=== PATIENT | male | born 1935 | race Caucasian/White ===

== ENCOUNTER 2019-12-16 09:51 | Observation (INO) | payer MEDICARE, MEDICAID ==
[~2019-12-16] VITALS: Ht 180.3 cm; Wt 85.0 kg
--- NOTE | 2019-12-16 10:10 | NUR ---
BIB EMS FOR LEFT ANKLE PAIN FROM TRIPPING OVER HIS BAG. CMS INTACT. ABRASIONS TO LEFT KNEE
--- NOTE | 2019-12-16 12:00 | NUR ---
WAITING FOR ORTHO BOOT AT 230 PM. PT VSS, NO NEEDS A THIS TIME. GIVEN WATER AND SNACKS
--- NOTE | 2019-12-16 13:01 | NUR ---
PT WAITING FOR ORTHO SPECIFIC BOOT FOR LEFT ANKLE MEAL TRAY ORDERED VSS
--- NOTE | 2019-12-16 13:27 | NUR ---
GIVEN MEAL TRAY, NO OTHER NEEDS AT THIS TIME.
[2019-12-16] MEDS ORDERED: METF10007 PO (14:57)
[2019-12-16] MEDS ORDERED: APIX5TAB PO (14:58)
[2019-12-16] MEDS ORDERED: ATOR20TA37 PO (14:58)
[2019-12-16] MEDS ORDERED: TAMS-11 PO (14:58)
--- NOTE | 2019-12-16 14:58 | NUR ---
PT UNABLE TO AMBULATE SAFELY FOR DC. AWARE. POC TO ADMIT. [facility] AT BEDSIDE.
[2019-12-16] MEDS ORDERED: HYDROcodone/APAP 5/325 TABLET PO ONE (15:00)
[2019-12-16 15:06] LABS: BASOPHILS # (AUTO) 0.04 x10^3/uL (0-0.1); BASOPHILS % (AUTO) 1 % (0-1); EOSINOPHILS # (AUTO) 0.08 x10^3/uL (0-0.4); EOSINOPHILS % (AUTO) 1 % (1-7); LYMPHOCYTES # (AUTO) 1.96 x10^3/uL (1-3.4); LYMPHOCYTES % (AUTO) 23 % (22-44); MD NO; MEAN CORPUSCULAR HEMOGLOBIN 30.9 pg (27.5-34.5); MEAN CORPUSCULAR HGB CONC 33.2 g/dL (33.2-36.2); MEAN CORPUSCULAR VOLUME 93.1 fL (81-97); MEAN PLATELET VOLUME 8.7 fL (7.4-10.4); MONOCYTES # (AUTO) 0.49 x10^3/uL (0.2-0.8); MONOCYTES % (AUTO) 6 % (2-9); NEUTROPHILS # (AUTO) 5.99 x10^3/uL (1.8-6.8); NEUTROPHILS % (AUTO) 70 % (42-75); PLATELET COUNT 301 x10^3/uL (130-400); RED BLOOD COUNT 4.34 x10^6/uL (4.38-5.82); RED CELL DISTRIBUTION WIDTH 15.3 % (9.4-14.8)
[2019-12-16 15:15] LABS: ANION GAP 6 mmol/L (5-15); CALCIUM 8.9 mg/dL (8.5-10.1); CHLORIDE 106 mmol/L (98-107); CREATININE 1.81 mg/dL (0.7-1.3)
[2019-12-16] MEDS ORDERED: ONDANSETRON ODT 4 MG PO PRN (15:30)
[2019-12-16] MEDS ORDERED: ACETAMINOPHEN 325 MG TABLET PO PRN (15:30)
[2019-12-16] MEDS ORDERED: BACLOFEN 10 MG TABLET PO PRN (15:30)
[2019-12-16] MEDS ORDERED: hydrALAzine 20 MG/ML, 1ML IVPush PRN (15:30)
[2019-12-16] MEDS ORDERED: morphine SULFATE 10 MG/ML, 1ML IVPush PRN (15:30)
[2019-12-16] MEDS ORDERED: ONDANSETRON 2MG/ML, 2ML IVPush PRN (15:30)
--- NOTE | 2019-12-16 15:30 | NUR ---
REPORT TO ELISEO
[2019-12-16 15:58] VITALS: BP 135/70
[2019-12-16] MEDS ORDERED: LISI1TAB20 PO (16:33)
[2019-12-16 16:38] VITALS: BP 135/70
[2019-12-16] MEDS: HYDROcodone/APAP 5/325 TABLET PO PRN ×2 (17:39→22:06)
[2019-12-16 20:20] VITALS: BP 104/61
[2019-12-16] MEDS: ATORVASTATIN 20 MG TABLET PO SCH (20:53)
[2019-12-16] MEDS: APIXABAN 5 MG TABLET PO SCH (20:53)
[2019-12-17 01:51] VITALS: BP 108/70
[2019-12-17] MEDS: HYDROcodone/APAP 5/325 TABLET PO PRN ×3 (01:55→22:15)
[2019-12-17 06:38] VITALS: BP 123/68
[2019-12-17] MEDS: APIXABAN 5 MG TABLET PO SCH (08:40)
[2019-12-17] MEDS ORDERED: TAMSULOSIN 0.4 MG CAP.ER.24H PO SCH (09:00)
[2019-12-17 11:38] LABS: CREATININE 1.84 mg/dL (0.7-1.3)
[2019-12-17 12:40] VITALS: BP 126/63
[2019-12-17 19:46] VITALS: BP 158/77
[2019-12-17] MEDS: ATORVASTATIN 20 MG TABLET PO SCH (19:48)
[2019-12-17] MEDS: APIXABAN 2.5 MG TABLET PO SCH (19:48)
[2019-12-17] MEDS: TAMSULOSIN 0.4 MG CAP.ER.24H PO SCH (19:49)
[2019-12-18] MEDS: HYDROcodone/APAP 5/325 TABLET PO PRN ×2 (02:52→17:00)
[2019-12-18 03:06] VITALS: BP 102/62
[2019-12-18 05:31] LABS: BASOPHILS # (AUTO) 0.04 x10^3/uL (0-0.1); BASOPHILS % (AUTO) 1 % (0-1); EOSINOPHILS % (AUTO) 1 % (1-7); LYMPHOCYTES # (AUTO) 1.77 x10^3/uL (1-3.4); LYMPHOCYTES % (AUTO) 21 % (22-44); MD NO; MEAN CORPUSCULAR HEMOGLOBIN 30.6 pg (27.5-34.5); MEAN CORPUSCULAR HGB CONC 33.1 g/dL (33.2-36.2); MEAN CORPUSCULAR VOLUME 92.7 fL (81-97); MEAN PLATELET VOLUME 8.7 fL (7.4-10.4); MONOCYTES # (AUTO) 0.57 x10^3/uL (0.2-0.8); MONOCYTES % (AUTO) 7 % (2-9); NEUTROPHILS # (AUTO) 5.86 x10^3/uL (1.8-6.8); NEUTROPHILS % (AUTO) 70 % (42-75); PLATELET COUNT 267 x10^3/uL (130-400); RED BLOOD COUNT 3.84 x10^6/uL (4.38-5.82); RED CELL DISTRIBUTION WIDTH 15.3 % (9.4-14.8)
[2019-12-18 05:37] LABS: ANION GAP 9 mmol/L (5-15); CALCIUM 8.5 mg/dL (8.5-10.1); CHLORIDE 104 mmol/L (98-107)
[2019-12-18 05:42] LABS: ALANINE AMINOTRANSFERASE 19 U/L (12-78); ALKALINE PHOSPHATASE 64 U/L (45-117); BILIRUBIN,TOTAL 0.6 mg/dL (0.2-1.0); CREATININE 1.89 mg/dL (0.7-1.3); TOTAL PROTEIN 6.1 g/dL (6.4-8.2)
[2019-12-18 07:16] VITALS: BP 91/53
[2019-12-18] MEDS: APIXABAN 2.5 MG TABLET PO SCH ×2 (08:23→20:56)
[2019-12-18] MEDS: TAMSULOSIN 0.4 MG CAP.ER.24H PO SCH ×2 (08:23→20:57)
[2019-12-18 13:40] VITALS: BP 103/59
[2019-12-18 20:31] VITALS: BP 133/62
[2019-12-18] MEDS: ATORVASTATIN 20 MG TABLET PO SCH (20:57)
[2019-12-19 02:15] VITALS: BP 146/69
[2019-12-19 05:07] LABS: ANION GAP 7 mmol/L (5-15); CALCIUM 8.5 mg/dL (8.5-10.1); CHLORIDE 104 mmol/L (98-107); CREATININE 1.87 mg/dL (0.7-1.3)
[2019-12-19 07:35] VITALS: BP 153/75
[2019-12-19] MEDS: APIXABAN 2.5 MG TABLET PO SCH (08:01)
[2019-12-19] MEDS: HYDROcodone/APAP 5/325 TABLET PO PRN (08:01)
[2019-12-19] MEDS: TAMSULOSIN 0.4 MG CAP.ER.24H PO SCH (08:01)
[2019-12-19 14:05] VITALS: BP 133/66
== END 2019-12-19 14:32 | disposition home or self-care (01) ==
LOC: ED 10:07 → EDIP 15:03 → INTOOBSV 15:03 → 4NE 15:50
PROVIDERS: ADMIT Hospitalist; ATTEND Internal Medicine
DX: S82.65XA Nondisplaced fracture of lateral malleolus of left fibula, initial encounter for closed fracture (principal); D68.69 Other thrombophilia; I48.20 Chronic atrial fibrillation, unspecified; E78.5 Hyperlipidemia, unspecified; E11.22 Type 2 diabetes mellitus with diabetic chronic kidney disease; I12.9 Hypertensive chronic kidney disease with stage 1 through stage 4 chronic kidney disease, or unspecified chronic kidney disease; N40.0 Benign prostatic hyperplasia without lower urinary tract symptoms; N18.3 Chronic kidney disease, stage 3 (moderate); H40.9 Unspecified glaucoma; N27.1 Small kidney, bilateral; Z79.899 Other long term (current) drug therapy; W01.0XXA Fall on same level from slipping, tripping and stumbling without subsequent striking against object, initial encounter; Y93.01 Activity, walking, marching and hiking; Y92.89 Other specified places as the place of occurrence of the external cause
CPT/HCPCS: 29515; 36415; 73590; 73610; 76770; 80048; 80053; 82565; 85025; 96374; 97116; 97162; 97165; 97530; 99285; G0378; J2405

== ENCOUNTER 2019-12-21 08:56 | Emergency (ER) | payer MEDICARE, MEDICAID ==
[~2019-12-21] VITALS: Ht 180.3 cm; Wt 83.1 kg
[~2019-12-21 08:56] MED LIST: APIX5TAB PO; ATOR20TA37 PO; LISI1TAB20 PO; METF10007 PO; TAMS-11 PO
[2019-12-21 08:57] VITALS: BP 115/79
[2019-12-21] MEDS ORDERED: HYDROcodone/APAP 5/325 TABLET ONE (09:25)
[2019-12-21] MEDS ORDERED: HYDROcodone/APAP 5/325 TABLET PO ONE (09:30)
--- NOTE | 2019-12-21 10:07 | NUR ---
PT MEDICATED PER MAR, NO ADVERSE EFFECTS NOTED. THIS RN REPLACED PTS FWW WHEEL, PT STATES THIS IS SUFFICIENT, AWAITING DC PAPERS
== END 2019-12-21 10:39 | disposition home or self-care (01) ==
LOC: ED 09:18
DX: S82.62XA Displaced fracture of lateral malleolus of left fibula, initial encounter for closed fracture (principal); M25.572 Pain in left ankle and joints of left foot; M79.672 Pain in left foot; I25.10 Atherosclerotic heart disease of native coronary artery without angina pectoris; I10 Essential (primary) hypertension; I48.91 Unspecified atrial fibrillation; Z72.9 Problem related to lifestyle, unspecified
CPT/HCPCS: 99283

== ENCOUNTER 2019-12-26 10:22 | Emergency (ER) | payer MEDICARE, MEDICAID ==
[~2019-12-26] VITALS: Ht 180.3 cm; Wt 81.7 kg
--- NOTE | 2019-12-26 13:05 | NUR ---
pt in [place]. Will be roomed on return to ED by tech.
--- NOTE | 2019-12-26 13:40 | NUR ---
assumed care of pt. pt presents c/o increased pain to L ankle radiating to L leg. pt reports that he was seen here last week for a fall and dx with ankle fx. pt has been wearing a walking boot and using a walker. pt reports that he is newly homeless and that he has been doing a lot more walkin than normal. no selling noted to ankle. CMS intact. L ankle elevated and ice pack applied. + Sharmila's sign. warm blankets given for comfort. no family at bedside
--- NOTE | 2019-12-26 13:58 | NUR ---
xray has been to bedside
--- NOTE | 2019-12-26 14:39 | NUR ---
report to Brandon WHITE for lunch
[2019-12-26 15:00] VITALS: BP 162/61
== END 2019-12-26 15:04 | disposition home or self-care (01) ==
LOC: ED 12:01
DX: S82.62XA Displaced fracture of lateral malleolus of left fibula, initial encounter for closed fracture (principal); M79.662 Pain in left lower leg; I48.91 Unspecified atrial fibrillation; I25.10 Atherosclerotic heart disease of native coronary artery without angina pectoris; I10 Essential (primary) hypertension; X50.0XXA Overexertion from strenuous movement or load, initial encounter; Y93.89 Activity, other specified; Y92.89 Other specified places as the place of occurrence of the external cause; Y99.8 Other external cause status
CPT/HCPCS: 99284

== ENCOUNTER 2019-12-31 06:57 | Emergency (ER) | payer MEDICARE, MEDICAID ==
[~2019-12-31] VITALS: Ht 177.8 cm; Wt 70.0 kg
[2019-12-31] MEDS ORDERED: HYDROcodone/APAP 5/325 TABLET PO ONE (08:00)
[2019-12-31] MEDS ORDERED: HYDROcodone/APAP 5/325 TABLET ONE (08:45)
--- NOTE | 2019-12-31 08:50 | NUR ---
AFTER MEDICATED FOR PAIN, PT WALKED TO BATHROOM WITH USE OF CANE
[2019-12-31 11:26] VITALS: BP 143/74
== END 2019-12-31 11:31 | disposition home or self-care (01) ==
LOC: ED 07:44
DX: S29.012A Strain of muscle and tendon of back wall of thorax, initial encounter (principal); S20.211A Contusion of right front wall of thorax, initial encounter; I11.9 Hypertensive heart disease without heart failure; I25.10 Atherosclerotic heart disease of native coronary artery without angina pectoris; I48.91 Unspecified atrial fibrillation; W18.30XA Fall on same level, unspecified, initial encounter; Y93.89 Activity, other specified; Y92.410 Unspecified street and highway as the place of occurrence of the external cause; Y99.8 Other external cause status
CPT/HCPCS: 72110; 99284

== ENCOUNTER 2020-05-10 15:50 | Inpatient (IN) | payer MEDICARE, MEDICAID ==
[~2020-05-10] VITALS: Ht 180.3 cm; Wt 83.5 kg
--- NOTE | 2020-05-10 15:50 | NUR ---
PT BIB [facility] FOR WEAKNESS OVER LAST 2 DAYS WITH HR IN THE 160'S ON [facility] ARRIVAL. 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 PT REPORTS NOT EATING OR DRINKING MUCH OVER LAST 2 DAYS. PT IS HOMELESS. PT DENIES CP.
[2020-05-10] MEDS ORDERED: LISI1TAB20 PO (16:42)
[2020-05-10] MEDS ORDERED: APIX5TAB PO (16:42)
[2020-05-10] MEDS ORDERED: METF500T17 PO (16:42)
[2020-05-10] MEDS ORDERED: ASPI-496 PO (16:42)
[2020-05-10 17:28] LABS: MICROSCOPIC AUTO
[2020-05-10 17:29] LABS: BASOPHILS # (AUTO) 0.03 x10^3/uL (0-0.1); BASOPHILS % (AUTO) 0 % (0-1); EOSINOPHILS % (AUTO) 5 % (1-7); LYMPHOCYTES # (AUTO) 1.81 x10^3/uL (1-3.4); LYMPHOCYTES % (AUTO) 21 % (22-44); MD NO; MEAN CORPUSCULAR HEMOGLOBIN 30.4 pg (27.5-34.5); MEAN CORPUSCULAR HGB CONC 33.1 g/dL (33.2-36.2); MEAN CORPUSCULAR VOLUME 91.9 fL (81-97); MEAN PLATELET VOLUME 9.5 fL (7.4-10.4); MONOCYTES % (AUTO) 7 % (2-9); NEUTROPHILS # (AUTO) 5.69 x10^3/uL (1.8-6.8); NEUTROPHILS % (AUTO) 67 % (42-75); PLATELET COUNT 273 x10^3/uL (130-400); RED BLOOD COUNT 4.31 x10^6/uL (4.38-5.82); RED CELL DISTRIBUTION WIDTH 14.7 % (9.4-14.8)
[2020-05-10 17:35] LABS: ALANINE AMINOTRANSFERASE 22 U/L (12-78); ALBUMIN 3.7 g/dL (3.4-5.0); ANION GAP 7 mmol/L (5-15); CHLORIDE 112 mmol/L (98-107); CREATININE 2.12 mg/dL (0.7-1.3)
[2020-05-10 17:39] LABS: ALKALINE PHOSPHATASE 91 U/L (45-117); BILIRUBIN,TOTAL 0.7 mg/dL (0.2-1.0); TOTAL PROTEIN 7.3 g/dL (6.4-8.2); TROPONIN I 0.058 ng/mL (0.000-0.045)
--- NOTE | 2020-05-10 17:54 | NUR ---
BREAK RN: PT RESTING ON FAITH. LAURA. VSS. ORTHOSTATICS COMPLETED.
--- NOTE | 2020-05-10 18:20 | NUR ---
CHART UP FOR MD RECHECK. PT AWARE.
--- NOTE | 2020-05-10 19:32 | NUR ---
STILL WAITING FOR ADMIT ORDER. PT IN NAD. VSS.
--- NOTE | 2020-05-10 20:20 | NUR ---
YECENIA Lewis NP AT BEDSIDE FOR ADMIT.
[2020-05-10] MEDS ORDERED: hydrALAzine 20 MG/ML, 1ML IVPush PRN (20:30)
[2020-05-10] MEDS ORDERED: BISACODYL 10 MG SUPP PR PRN (20:30)
[2020-05-10] MEDS ORDERED: POLYETHYLENE GLYCOL 17 GM PACKET PO PRN (20:30)
[2020-05-10] MEDS ORDERED: ONDANSETRON ODT 4 MG PO PRN (20:30)
[2020-05-10] MEDS ORDERED: ACETAMINOPHEN 325 MG TABLET PO PRN (20:30)
--- NOTE | 2020-05-10 20:51 | NUR ---
PT GIVEN WATER PER PT REQUEST. STILL WAITING ON ADMIT BED.
[2020-05-10] MEDS ORDERED: APIXABAN 5 MG TABLET ONE (20:59)
[2020-05-10] MEDS ORDERED: ATORVASTATIN 20 MG TABLET ONE (20:59)
[2020-05-10] MEDS: INSULIN LISPRO 100 UNITS/ML, PEN SQ-INSULIN SCH (21:00)
[2020-05-10] MEDS ORDERED: ATORVASTATIN 20 MG TABLET PO SCH (21:00)
[2020-05-10] MEDS: APIXABAN 5 MG TABLET PO SCH (21:01)
[2020-05-10] MEDS: SODIUM CHLORIDE 0.45% 1,000 ML IV SCH (21:43)
--- NOTE | 2020-05-10 22:01 | NUR ---
REPORT TO JUDSON WHITE.
[2020-05-10 23:05] LABS: TROPONIN I 0.043 ng/mL (0.000-0.045)
[2020-05-11 00:13] VITALS: BP 175/94
[2020-05-11 05:34] LABS: BASOPHILS # (AUTO) 0.03 x10^3/uL (0-0.1); BASOPHILS % (AUTO) 0 % (0-1); EOSINOPHILS # (AUTO) 0.52 x10^3/uL (0-0.4); EOSINOPHILS % (AUTO) 7 % (1-7); LYMPHOCYTES # (AUTO) 1.73 x10^3/uL (1-3.4); LYMPHOCYTES % (AUTO) 22 % (22-44); MD NO; MEAN CORPUSCULAR HEMOGLOBIN 30.5 pg (27.5-34.5); MEAN CORPUSCULAR VOLUME 92.4 fL (81-97); MEAN PLATELET VOLUME 9.7 fL (7.4-10.4); MONOCYTES # (AUTO) 0.58 x10^3/uL (0.2-0.8); MONOCYTES % (AUTO) 7 % (2-9); NEUTROPHILS # (AUTO) 5.11 x10^3/uL (1.8-6.8); NEUTROPHILS % (AUTO) 64 % (42-75); PLATELET COUNT 263 x10^3/uL (130-400); RED BLOOD COUNT 4.11 x10^6/uL (4.38-5.82); RED CELL DISTRIBUTION WIDTH 14.5 % (9.4-14.8)
[2020-05-11 05:43] LABS: ANION GAP 6 mmol/L (5-15); CALCIUM 8.6 mg/dL (8.5-10.1); CHLORIDE 114 mmol/L (98-107)
[2020-05-11 05:47] LABS: TROPONIN I 0.039 ng/mL (0.000-0.045)
[2020-05-11] MEDS: SODIUM CHLORIDE 0.45% 1,000 ML IV SCH ×2 (06:14→09:42)
[2020-05-11] MEDS: INSULIN LISPRO 100 UNITS/ML, PEN SQ-INSULIN SCH ×3 (07:00→16:00)
[2020-05-11] MEDS: APIXABAN 5 MG TABLET PO SCH (08:07)
[2020-05-11 08:35] VITALS: BP 163/90
[2020-05-11] MEDS ORDERED: SENNA/DOCUSATE TABLET PO SCH (09:00)
[2020-05-11] MEDS ORDERED: ASPIRIN 81 MG TABLET EC PO SCH (09:00)
[2020-05-11] MEDS ORDERED: TAMSULOSIN 0.4 MG CAP.ER.24H PO SCH (09:00)
[2020-05-11 09:57] VITALS: BP 160/82
[2020-05-11 09:59] VITALS: BP 146/77
[2020-05-11 10:01] VITALS: BP 153/85
[2020-05-11 12:05] VITALS: BP 150/79
== END 2020-05-11 16:28 | disposition home or self-care (01) | DRG 683 ==
LOC: ED 17:39 → EDIP 19:34 → 4EST 23:47
PROVIDERS: ADMIT Family Medicine; ATTEND Hospitalist
DX: N17.0 Acute kidney failure with tubular necrosis (principal); D68.69 Other thrombophilia; I48.20 Chronic atrial fibrillation, unspecified; I12.9 Hypertensive chronic kidney disease with stage 1 through stage 4 chronic kidney disease, or unspecified chronic kidney disease; E11.22 Type 2 diabetes mellitus with diabetic chronic kidney disease; E78.5 Hyperlipidemia, unspecified; H40.9 Unspecified glaucoma; I25.10 Atherosclerotic heart disease of native coronary artery without angina pectoris; I48.0 Paroxysmal atrial fibrillation; N18.3 Chronic kidney disease, stage 3 (moderate); N40.0 Benign prostatic hyperplasia without lower urinary tract symptoms; Z59.0 Homelessness; Z82.0 Family history of epilepsy and other diseases of the nervous system
CPT/HCPCS: 36415; 70450; 71045; 80048; 80053; 81001; 82962; 83036; 84484; 85025; 93005; 93880; G0378; J0360

== ENCOUNTER 2020-08-23 11:52 | Emergency (ER) | payer MEDICARE, MEDICAID ==
[~2020-08-23] VITALS: Ht 180.3 cm; Wt 85.5 kg
[~2020-08-23 11:52] MED LIST changes: +ASPI-496 PO; +METF500T17 PO
--- NOTE | 2020-08-23 12:04 | NUR ---
PT C/O LOW BACK PAIN AND NECK STIFFNESS X 10 YRS. ABLE TO MOVE BACK & NECK WITHOUT DIFFICULTY. ABLE TO STAND AT BS W/OUT ASSIST. PT CURRENTLY HOMELESS. DENIES CP, FEVER.
[2020-08-23] MEDS ORDERED: HYDROcodone/APAP 5/325 TABLET ONE (12:15)
[2020-08-23] MEDS ORDERED: METHOCARBAMOL 750 MG TABLET ONE (12:15)
--- NOTE | 2020-08-23 12:19 | NUR ---
NORCO & ROBAXIN GIVEN PER EMAR. LABS DRAWN.
--- NOTE | 2020-08-23 12:20 | NUR ---
TO RADIOLOGY PER FAITH
[2020-08-23] MEDS ORDERED: METHOCARBAMOL 750 MG TABLET PO ONE (12:30)
[2020-08-23] MEDS ORDERED: HYDROcodone/APAP 5/325 TABLET PO ONE (12:30)
[2020-08-23 12:35] LABS: BASOPHILS % (AUTO) 1 % (0-1); EOSINOPHILS % (AUTO) 1 % (1-7); LYMPHOCYTES % (AUTO) 24 % (22-44); MEAN CORPUSCULAR HEMOGLOBIN 30.7 pg (27.5-34.5); MEAN CORPUSCULAR HGB CONC 33.8 g/dL (33.2-36.2); MEAN PLATELET VOLUME 9.7 fL (7.4-10.4); MONOCYTES % (AUTO) 7 % (2-9); NEUTROPHILS % (AUTO) 68 % (42-75); PLATELET COUNT 244 x10^3/uL (130-400); RED BLOOD COUNT 4.37 x10^6/uL (4.38-5.82); RED CELL DISTRIBUTION WIDTH 14.1 % (9.4-14.8)
[2020-08-23 12:37] LABS: MD NO
[2020-08-23 12:49] LABS: ALBUMIN 3.7 g/dL (3.4-5.0); ANION GAP 7 mmol/L (5-15); CALCIUM 8.7 mg/dL (8.5-10.1); CHLORIDE 107 mmol/L (98-107)
[2020-08-23 12:50] LABS: CREATININE 2.13 mg/dL (0.7-1.3)
[2020-08-23] MEDS ORDERED: SODIUM CHLORIDE 0.9% 1,000ML IVBOLUS ONE (13:00)
[2020-08-23 13:14] LABS: MICROSCOPIC NOT IND
--- NOTE | 2020-08-23 13:25 | NUR ---
RESTING ON GURNEY. REPORTS SOME RELIEF FROM PAIN. NS BOLUS INFUSING. SIDE RAIL UP X2, CALL LIGHT W/IN REACH.
--- NOTE | 2020-08-23 14:06 | NUR ---
PT DOZING; EASILY AWAKENED. NS BOLUS INFUSING; IV SITE PATENT.
[2020-08-23 14:30] VITALS: BP 106/57
--- NOTE | 2020-08-23 14:57 | NUR ---
PT DOZING; EASILY AWAKENED. NS INFUSED.
== END 2020-08-23 15:47 | disposition home or self-care (01) ==
LOC: ED 12:46
DX: G89.29 Other chronic pain (principal); M54.5 Low back pain; M51.36 Other intervertebral disc degeneration, lumbar region; R42 Dizziness and giddiness; I10 Essential (primary) hypertension; E11.9 Type 2 diabetes mellitus without complications; R53.1 Weakness; I48.91 Unspecified atrial fibrillation; I25.10 Atherosclerotic heart disease of native coronary artery without angina pectoris; Z87.891 Personal history of nicotine dependence
CPT/HCPCS: 36415; 72110; 80048; 81003; 82040; 85025; 93005; 96360; 96361; 99285; J7030

== ENCOUNTER 2020-08-31 11:32 | Emergency (ER) | payer MEDICARE, MEDICAID ==
[~2020-08-31] VITALS: Ht 180.3 cm; Wt 82.7 kg
--- NOTE | 2020-08-31 11:55 | NUR ---
Pt presents to ER with c/o generalized pain "my neck, my whole back, my legs, they're real messed up. My clothes are dirty, I need to get cleaned up." Pt reports pain worse over the last two weeks due to having to walk around a lot as he is currently homeless. Pt denies any neuro defecits, able to ambulate with steady gait. Pt placed in gown, positioned for comfort in bed. Continuous oxygen and BP monitors applied, all safety measures observed.
--- NOTE | 2020-08-31 11:57 | NUR ---
Joe ZELAYA at bedside to evaluate pt. Pt reports he was seen here last week for same complaint, was given rx but was unable to fill it.
[2020-08-31] MEDS ORDERED: HYDROcodone/APAP 5/325 TABLET ONE (12:15)
[2020-08-31] MEDS ORDERED: LIDODERM 5% PATCH TD ONE ×2 (12:15→12:30)
--- NOTE | 2020-08-31 12:16 | NUR ---
PT AT XR.
[2020-08-31] MEDS ORDERED: HYDROcodone/APAP 5/325 TABLET PO ONE (12:30)
--- NOTE | 2020-08-31 12:45 | NUR ---
BACK FROM XR. MEDICATED FOR PAIN, LIDO PATCH R MIDDLE BACK. GIVEN URINAL. CALL AGUILERA.
--- NOTE | 2020-08-31 13:00 | NUR ---
ASSUMED CARE OF PATIENT. REPORT FROM LILIA WHITE. PATIENT RESTING, CALL LIGHT IN PLACE. BED RAILS UP AND IN PLACE. NO ADDITIONAL NEEDS VERBALIZED AT THIS TIME
[2020-08-31 13:26] LABS: CHLORIDE 109 mmol/L (98-107)
[2020-08-31 13:30] LABS: ALANINE AMINOTRANSFERASE 26 U/L (12-78); ALBUMIN 3.9 g/dL (3.4-5.0); ALKALINE PHOSPHATASE 75 U/L (45-117); ANION GAP 8 mmol/L (5-15); BILIRUBIN,TOTAL 0.5 mg/dL (0.2-1.0); CREATININE 2.17 mg/dL (0.7-1.3); TOTAL PROTEIN 7.2 g/dL (6.4-8.2)
--- NOTE | 2020-08-31 14:14 | NUR ---
URINE COLLECTED AND SENT
[2020-08-31 14:22] LABS: MICROSCOPIC AUTO
[2020-08-31 14:53] LABS: BASOPHILS % (AUTO) 0 % (0-1); EOSINOPHILS % (AUTO) 0 % (1-7); LYMPHOCYTES % (AUTO) 31 % (22-44); MEAN CORPUSCULAR HEMOGLOBIN 29.5 pg (27.5-34.5); MEAN CORPUSCULAR HGB CONC 32.5 g/dL (33.2-36.2); MEAN PLATELET VOLUME 9.8 fL (7.4-10.4); MONOCYTES % (AUTO) 7 % (2-9); NEUTROPHILS % (AUTO) 61 % (42-75); PLATELET COUNT 210 x10^3/uL (130-400); RED BLOOD COUNT 4.51 x10^6/uL (4.38-5.82); RED CELL DISTRIBUTION WIDTH 14.7 % (9.4-14.8)
[2020-08-31 14:59] LABS: MD NO
--- NOTE | 2020-08-31 15:23 | NUR ---
Patient/Caregiver given discharge instructions and they have confirmed that they understand the instructions. Patient ambulatory.
[2020-08-31 15:24] VITALS: BP 125/65
== END 2020-08-31 15:27 | disposition home or self-care (01) ==
LOC: ED 13:06
DX: M89.49 Other hypertrophic osteoarthropathy, multiple sites (principal); M54.5 Low back pain; R19.7 Diarrhea, unspecified; E11.9 Type 2 diabetes mellitus without complications; I10 Essential (primary) hypertension; I48.91 Unspecified atrial fibrillation
CPT/HCPCS: 36415; 72050; 72072; 80053; 81001; 85025; 87086; 99284

== ENCOUNTER 2020-11-01 03:02 | Emergency (ER) | payer MEDICARE, MEDICAID ==
[~2020-11-01] VITALS: Ht 177.8 cm; Wt 83.0 kg
[~2020-11-01 03:02] MED LIST changes: +APIX2.5T PO; +CEFD300C37 PO; +DILT300C2 PO; +DOXY100T PO; +MAGN400T50 PO
--- NOTE | 2020-11-01 03:02 | NUR ---
[facility] PT CONTACT. PT BIBA C/O SOB AND "HARD TIME CATCHING MY BREATH". PT DENIES CHEST PAIN. RECENTLY SEEN FOR SAME, "I WAS HERE FOR THE SAME THING A LITTLE WHILE AGO, IT WAS MY AFIB". PT SITTING UPRIGHT ON GURNEY, SPEAKING IN FULL SENTENCES. LAURA, GAEL. PT PLACED ON CONTINUOUS PULSE OX AND CARDIAC MONITORING. CALL LIGHT AND BELONGINGS WITHIN REACH. ERP AT BEDSIDE
[2020-11-01] MEDS ORDERED: ALBUTEROL/IPRATROPIUM 2.5MG/0.5MG, 3 ML ONE (03:08)
[2020-11-01 03:21] LABS: BASOPHILS % (AUTO) 1 % (0-1); EOSINOPHILS % (AUTO) 4 % (1-7); LYMPHOCYTES % (AUTO) 22 % (22-44); MEAN CORPUSCULAR HEMOGLOBIN 29.9 pg (27.5-34.5); MEAN CORPUSCULAR HGB CONC 32.5 g/dL (33.2-36.2); MEAN PLATELET VOLUME 9.5 fL (7.4-10.4); MONOCYTES % (AUTO) 6 % (2-9); NEUTROPHILS % (AUTO) 67 % (42-75); PLATELET COUNT 273 x10^3/uL (130-400); RED BLOOD COUNT 3.85 x10^6/uL (4.38-5.82); RED CELL DISTRIBUTION WIDTH 15.5 % (9.4-14.8)
[2020-11-01 03:25] LABS: MD NO
[2020-11-01] MEDS ORDERED: ALBUTEROL/IPRATROPIUM 2.5MG/0.5MG, 3 ML NPPB ONE (03:30)
[2020-11-01 03:32] LABS: ALANINE AMINOTRANSFERASE 69 U/L (12-78); ALBUMIN 3.4 g/dL (3.4-5.0); ANION GAP 8 mmol/L (5-15); CALCIUM 8.5 mg/dL (8.5-10.1); CHLORIDE 112 mmol/L (98-107); CREATININE 1.68 mg/dL (0.7-1.3)
[2020-11-01 03:36] LABS: ALKALINE PHOSPHATASE 80 U/L (45-117); BILIRUBIN,TOTAL 0.5 mg/dL (0.2-1.0); TOTAL PROTEIN 6.6 g/dL (6.4-8.2); TROPONIN I 0.056 ng/mL (0.000-0.045)
--- NOTE | 2020-11-01 04:00 | NUR ---
PT SITTING UPRIGHT ON GURNEY, SPEAKING IN FULL SENTENCES. GAEL SANCHEZ. PT ON CONTINUOUS PULSE OX AND CARDIAC MONITORING. CALL LIGHT AND BELONGINGS WITHIN REACH. "I FEEL BETTER AFTER THAT BREATHING TX THING". NO ADDITIONAL NEEDS AT THIS TIME.
[2020-11-01 04:33] VITALS: BP 107/74
--- NOTE | 2020-11-01 04:38 | NUR ---
Patient given discharge instructions and they have confirmed that they understand the instructions. Patient ambulatory with use of personal cane. Pt provided taxi voucher upon d/c.
== END 2020-11-01 04:40 | disposition home or self-care (01) ==
LOC: ED 03:43
DX: E11.22 Type 2 diabetes mellitus with diabetic chronic kidney disease (principal); I12.9 Hypertensive chronic kidney disease with stage 1 through stage 4 chronic kidney disease, or unspecified chronic kidney disease; N18.9 Chronic kidney disease, unspecified; J18.9 Pneumonia, unspecified organism; R77.8 Other specified abnormalities of plasma proteins; R07.89 Other chest pain; I48.91 Unspecified atrial fibrillation; I25.10 Atherosclerotic heart disease of native coronary artery without angina pectoris; R06.00 Dyspnea, unspecified; Z87.891 Personal history of nicotine dependence
CPT/HCPCS: 36415; 71045; 80053; 83880; 84484; 85025; 93005; 94640; 99285

== ENCOUNTER 2020-12-26 18:57 | Inpatient (IN) | payer MEDICARE, MEDICAID ==
[~2020-12-26] VITALS: Ht 180.3 cm; Wt 78.7 kg
--- NOTE | 2020-12-26 19:12 | NUR ---
[place]. Pt states SOB is worse with exertion. Pt denies CP. Pt denies N/V or other complaints. Pt in a-fib rhythm, BP stable. Pt on monitor. Warm blanket given.
[2020-12-26] MEDS ORDERED: DILTIAZEM 5 MG/ML, 5ML ONE (19:52)
[2020-12-26] MEDS ORDERED: DILTIAZEM 60 MG TABLET PO ONE (20:00)
[2020-12-26] MEDS ORDERED: SODIUM CHLORIDE FLUSH 10ML SYR IVF ONE (20:00)
[2020-12-26] MEDS ORDERED: DILTIAZEM 5 MG/ML, 5ML IV ONE (20:00)
[2020-12-26 20:14] LABS: BASOPHILS % (AUTO) 1 % (0-1); EOSINOPHILS % (AUTO) 1 % (1-7); LYMPHOCYTES % (AUTO) 16 % (22-44); MEAN CORPUSCULAR HEMOGLOBIN 29.7 pg (27.5-34.5); MEAN CORPUSCULAR HGB CONC 33.1 g/dL (33.2-36.2); MEAN PLATELET VOLUME 9.1 fL (7.4-10.4); MONOCYTES % (AUTO) 6 % (2-9); NEUTROPHILS % (AUTO) 77 % (42-75); PLATELET COUNT 278 x10^3/uL (130-400); RED BLOOD COUNT 4.18 x10^6/uL (4.38-5.82); RED CELL DISTRIBUTION WIDTH 15.3 % (9.4-14.8)
[2020-12-26 20:23] LABS: ALANINE AMINOTRANSFERASE 106 U/L (12-78); ALBUMIN 3.4 g/dL (3.4-5.0); ANION GAP 3 mmol/L (5-15); CALCIUM 8.5 mg/dL (8.5-10.1); CHLORIDE 114 mmol/L (98-107); CREATININE 1.77 mg/dL (0.7-1.3)
[2020-12-26 20:28] LABS: ALKALINE PHOSPHATASE 96 U/L (45-117); BILIRUBIN,TOTAL 0.6 mg/dL (0.2-1.0); TOTAL PROTEIN 6.4 g/dL (6.4-8.2)
[2020-12-26] MEDS ORDERED: FUROSEMIDE 40 MG/4 ML IV ONE (21:00)
[2020-12-26] MEDS ORDERED: LABETALOL 5MG/ML, 20ML IVPush PRN (22:00)
[2020-12-26] MEDS ORDERED: LIDODERM 5% PATCH TD PRN (22:00)
[2020-12-26] MEDS ORDERED: PHARMACY MAY ADJ FOR RENAL FX MC PRN (22:00)
[2020-12-26] MEDS ORDERED: ONDANSETRON 2MG/ML, 2ML IVPush PRN (22:00)
[2020-12-26] MEDS ORDERED: MELATONIN 5 MG TABLET PO PRN (22:00)
[2020-12-26 22:44] VITALS: BP 158/104
[2020-12-26] MEDS: APIXABAN 2.5 MG TABLET PO SCH (22:46)
[2020-12-26] MEDS: ATORVASTATIN 20 MG TABLET PO SCH (22:46)
[2020-12-26 22:54] VITALS: BP 158/104
[2020-12-27 01:27] VITALS: BP 158/75
[2020-12-27 01:45] LABS: TROPONIN I 0.081 ng/mL (0.000-0.045)
[2020-12-27] MEDS: ACETAMINOPHEN 325 MG TABLET PO PRN ×3 (01:52→21:00)
[2020-12-27 05:15] LABS: ANION GAP 5 mmol/L (5-15); CALCIUM 8.8 mg/dL (8.5-10.1); CHLORIDE 111 mmol/L (98-107)
[2020-12-27 05:22] LABS: BASOPHILS % (AUTO) 1 % (0-1); EOSINOPHILS % (AUTO) 1 % (1-7); LYMPHOCYTES % (AUTO) 18 % (22-44); MEAN CORPUSCULAR HEMOGLOBIN 29.4 pg (27.5-34.5); MEAN CORPUSCULAR HGB CONC 32.8 g/dL (33.2-36.2); MONOCYTES % (AUTO) 7 % (2-9); NEUTROPHILS % (AUTO) 74 % (42-75); PLATELET COUNT 272 x10^3/uL (130-400); RED BLOOD COUNT 4.22 x10^6/uL (4.38-5.82); RED CELL DISTRIBUTION WIDTH 15.1 % (9.4-14.8)
[2020-12-27 05:24] LABS: CREATININE 1.67 mg/dL (0.7-1.3); TROPONIN I 0.077 ng/mL (0.000-0.045)
[2020-12-27] MEDS: INSULIN LISPRO 100 UNITS/ML, PEN SQ-INSULIN SCH ×4 (08:15→21:00)
[2020-12-27 08:50] VITALS: BP 160/104
[2020-12-27] MEDS: MAGNESIUM OXIDE 400 MG TABLET PO SCH (08:59)
[2020-12-27] MEDS: FUROSEMIDE 40 MG/4 ML IV SCH ×2 (08:59→16:16)
[2020-12-27] MEDS: ASPIRIN 81 MG TABLET EC PO SCH (08:59)
[2020-12-27] MEDS: TAMSULOSIN 0.4 MG CAP.ER.24H PO SCH (09:00)
[2020-12-27] MEDS ORDERED: HYDROCHLOROTHIAZIDE 25 MG TABLET PO SCH (09:00)
[2020-12-27] MEDS: APIXABAN 2.5 MG TABLET PO SCH ×2 (09:00→21:00)
[2020-12-27] MEDS: LISINOPRIL 20 MG TABLET PO SCH (09:00)
[2020-12-27] MEDS: DILTIAZEM 300 MG CAP.ER.24H PO SCH (09:01)
[2020-12-27 15:20] VITALS: BP 200/108
[2020-12-27 15:43] VITALS: BP 161/87
[2020-12-27 19:41] VITALS: BP 133/103
[2020-12-27] MEDS: ATORVASTATIN 20 MG TABLET PO SCH (21:00)
[2020-12-28 01:01] VITALS: BP 160/72
[2020-12-28 04:42] LABS: BASOPHILS % (AUTO) 1 % (0-1); EOSINOPHILS % (AUTO) 2 % (1-7); LYMPHOCYTES % (AUTO) 20 % (22-44); MEAN CORPUSCULAR HEMOGLOBIN 29.7 pg (27.5-34.5); MEAN CORPUSCULAR HGB CONC 33.5 g/dL (33.2-36.2); MEAN PLATELET VOLUME 9.1 fL (7.4-10.4); MONOCYTES % (AUTO) 8 % (2-9); NEUTROPHILS % (AUTO) 70 % (42-75); PLATELET COUNT 282 x10^3/uL (130-400); RED BLOOD COUNT 4.68 x10^6/uL (4.38-5.82); RED CELL DISTRIBUTION WIDTH 15.2 % (9.4-14.8)
[2020-12-28] MEDS: ACETAMINOPHEN 325 MG TABLET PO PRN ×2 (04:48→20:25)
[2020-12-28] MEDS: DOCUSATE 100 MG CAPSULE PO PRN ×2 (04:48→09:12)
[2020-12-28 04:55] LABS: ANION GAP 7 mmol/L (5-15); CALCIUM 9.3 mg/dL (8.5-10.1); CHLORIDE 107 mmol/L (98-107)
[2020-12-28 05:08] LABS: CREATININE 2.05 mg/dL (0.7-1.3); FREE T4 (FREE THYROXINE) 1.26 ng/dL (0.76-1.46)
[2020-12-28] MEDS: INSULIN LISPRO 100 UNITS/ML, PEN SQ-INSULIN SCH ×4 (07:00→20:25)
[2020-12-28 08:48] VITALS: BP 157/80
[2020-12-28] MEDS: LISINOPRIL 20 MG TABLET PO SCH (09:00)
[2020-12-28] MEDS: APIXABAN 2.5 MG TABLET PO SCH ×2 (09:12→20:25)
[2020-12-28] MEDS: MAGNESIUM OXIDE 400 MG TABLET PO SCH (09:12)
[2020-12-28] MEDS: TAMSULOSIN 0.4 MG CAP.ER.24H PO SCH (09:12)
[2020-12-28] MEDS: ASPIRIN 81 MG TABLET EC PO SCH (09:12)
[2020-12-28] MEDS: FUROSEMIDE 40 MG/4 ML IV SCH (09:12)
[2020-12-28] MEDS: DILTIAZEM 300 MG CAP.ER.24H PO SCH (09:12)
[2020-12-28] MEDS ORDERED: POTASSIUM CHLORIDE 20 MEQ TAB.ER.PRT PO ONE (09:30)
[2020-12-28] MEDS ORDERED: DILTIAZEM 60 MG TABLET PO STA (09:50)
[2020-12-28] MEDS ORDERED: ALBUMIN HUMAN 25% 100 ML IV ONE (10:00)
[2020-12-28 14:02] LABS: MICROSCOPIC AUTO
[2020-12-28 15:30] VITALS: BP 118/67
[2020-12-28] MEDS ORDERED: FUROSEMIDE 40 MG/4 ML IV SCH (17:00)
[2020-12-28 19:02] VITALS: BP 123/80
[2020-12-28] MEDS: ATORVASTATIN 20 MG TABLET PO SCH (20:25)
[2020-12-29 00:16] VITALS: BP 138/78
[2020-12-29 05:52] LABS: BASOPHILS % (AUTO) 1 % (0-1); EOSINOPHILS % (AUTO) 3 % (1-7); LYMPHOCYTES % (AUTO) 25 % (22-44); MEAN CORPUSCULAR HEMOGLOBIN 29.7 pg (27.5-34.5); MEAN CORPUSCULAR HGB CONC 33.3 g/dL (33.2-36.2); MEAN PLATELET VOLUME 9.6 fL (7.4-10.4); MONOCYTES % (AUTO) 8 % (2-9); NEUTROPHILS % (AUTO) 63 % (42-75); PLATELET COUNT 242 x10^3/uL (130-400); RED BLOOD COUNT 3.96 x10^6/uL (4.38-5.82); RED CELL DISTRIBUTION WIDTH 14.9 % (9.4-14.8)
[2020-12-29 06:01] LABS: ANION GAP 6 mmol/L (5-15); CALCIUM 8.6 mg/dL (8.5-10.1); CHLORIDE 107 mmol/L (98-107)
[2020-12-29 06:04] LABS: CREATININE 1.71 mg/dL (0.7-1.3)
[2020-12-29] MEDS: INSULIN LISPRO 100 UNITS/ML, PEN SQ-INSULIN SCH ×4 (07:00→20:47)
[2020-12-29 08:12] VITALS: BP 153/79
[2020-12-29] MEDS: DILTIAZEM CD 180 MG CAP.ER.24H PO SCH (08:46)
[2020-12-29] MEDS: MAGNESIUM OXIDE 400 MG TABLET PO SCH (08:46)
[2020-12-29] MEDS: ASPIRIN 81 MG TABLET EC PO SCH (08:46)
[2020-12-29] MEDS: TAMSULOSIN 0.4 MG CAP.ER.24H PO SCH (08:46)
[2020-12-29] MEDS: LISINOPRIL 20 MG TABLET PO SCH (08:46)
[2020-12-29] MEDS: APIXABAN 2.5 MG TABLET PO SCH ×2 (08:46→20:39)
[2020-12-29] MEDS ORDERED: FUROSEMIDE 40 MG/4 ML IV SCH (09:00)
[2020-12-29 12:38] VITALS: BP 118/71
[2020-12-29] MEDS ORDERED: POTASSIUM CHLORIDE 20 MEQ TAB.ER.PRT PO ONE ×2 (17:30→21:00)
[2020-12-29 18:18] LABS: ANION GAP 8 mmol/L (5-15); CALCIUM 9.1 mg/dL (8.5-10.1); CHLORIDE 105 mmol/L (98-107); CREATININE 1.75 mg/dL (0.7-1.3)
[2020-12-29] MEDS: ATORVASTATIN 20 MG TABLET PO SCH (20:39)
[2020-12-29 21:35] VITALS: BP 129/82
[2020-12-30 01:01] VITALS: BP 153/99
[2020-12-30 05:33] LABS: BASOPHILS % (AUTO) 1 % (0-1); EOSINOPHILS % (AUTO) 3 % (1-7); LYMPHOCYTES % (AUTO) 22 % (22-44); MEAN CORPUSCULAR HEMOGLOBIN 29.7 pg (27.5-34.5); MEAN PLATELET VOLUME 9.2 fL (7.4-10.4); MONOCYTES % (AUTO) 9 % (2-9); NEUTROPHILS % (AUTO) 66 % (42-75); PLATELET COUNT 251 x10^3/uL (130-400); RED BLOOD COUNT 4.25 x10^6/uL (4.38-5.82); RED CELL DISTRIBUTION WIDTH 15.4 % (9.4-14.8)
[2020-12-30 05:39] LABS: ANION GAP 6 mmol/L (5-15); CALCIUM 8.7 mg/dL (8.5-10.1); CHLORIDE 109 mmol/L (98-107); CREATININE 1.59 mg/dL (0.7-1.3)
[2020-12-30] MEDS: INSULIN LISPRO 100 UNITS/ML, PEN SQ-INSULIN SCH ×4 (07:00→20:20)
[2020-12-30 07:39] VITALS: BP 166/75
[2020-12-30] MEDS: TAMSULOSIN 0.4 MG CAP.ER.24H PO SCH ×2 (09:46→20:21)
[2020-12-30] MEDS: SPIRONOLACTONE 25 MG TABLET PO SCH (09:46)
[2020-12-30] MEDS: FUROSEMIDE 40 MG TABLET PO SCH (09:47)
[2020-12-30] MEDS: DILTIAZEM CD 180 MG CAP.ER.24H PO SCH (09:47)
[2020-12-30] MEDS: MAGNESIUM OXIDE 400 MG TABLET PO SCH (09:47)
[2020-12-30] MEDS: ASPIRIN 81 MG TABLET EC PO SCH (09:47)
[2020-12-30] MEDS: APIXABAN 2.5 MG TABLET PO SCH ×2 (09:49→20:20)
[2020-12-30] MEDS: LISINOPRIL 20 MG TABLET PO SCH (09:49)
[2020-12-30 13:19] VITALS: BP 137/76
[2020-12-30 20:14] VITALS: BP 152/78
[2020-12-30] MEDS: ATORVASTATIN 20 MG TABLET PO SCH (20:20)
[2020-12-31] MEDS: ACETAMINOPHEN 325 MG TABLET PO PRN (02:20)
[2020-12-31 03:09] VITALS: BP 146/71
[2020-12-31 05:40] LABS: CHLORIDE 106 mmol/L (98-107)
[2020-12-31 05:47] LABS: ANION GAP 7 mmol/L (5-15); CREATININE 1.51 mg/dL (0.7-1.3)
[2020-12-31] MEDS: INSULIN LISPRO 100 UNITS/ML, PEN SQ-INSULIN SCH ×2 (07:00→11:42)
[2020-12-31 08:27] VITALS: BP 154/75
[2020-12-31] MEDS: ASPIRIN 81 MG TABLET EC PO SCH (08:28)
[2020-12-31] MEDS: TAMSULOSIN 0.4 MG CAP.ER.24H PO SCH (08:28)
[2020-12-31] MEDS: MAGNESIUM OXIDE 400 MG TABLET PO SCH (08:28)
[2020-12-31] MEDS: SPIRONOLACTONE 25 MG TABLET PO SCH (08:28)
[2020-12-31] MEDS: LISINOPRIL 20 MG TABLET PO SCH (08:28)
[2020-12-31] MEDS: DILTIAZEM CD 180 MG CAP.ER.24H PO SCH (08:29)
[2020-12-31] MEDS: FUROSEMIDE 40 MG TABLET PO SCH (08:29)
[2020-12-31] MEDS: APIXABAN 2.5 MG TABLET PO SCH (08:29)
[2020-12-31] MEDS ORDERED: REGADENOSON 0.4 MG/5 ML SYRINGE ONE (08:36)
[2020-12-31 12:40] VITALS: BP 130/86
[2020-12-31] MEDS ORDERED: LISI-170 PO (14:00)
[2020-12-31] MEDS ORDERED: ATOR20TA37 PO (14:00)
[2020-12-31] MEDS ORDERED: DILT180C53 PO ×3 (14:00→14:06)
[2020-12-31] MEDS ORDERED: TAMS-11 PO (14:00)
[2020-12-31] MEDS ORDERED: ASPI81TA45 PO (14:00)
[2020-12-31] MEDS ORDERED: DOCU-131 PO (14:00)
[2020-12-31] MEDS ORDERED: APIX2.5T PO (14:00)
[2020-12-31] MEDS ORDERED: MELA5TAB14 PO (14:00)
[2020-12-31] MEDS ORDERED: MAGN400T50 PO (14:00)
[2020-12-31] MEDS ORDERED: FURO40TA6 PO (14:00)
[2020-12-31] MEDS ORDERED: SPIR25TA PO (14:00)
[2021-01-01] MEDS ORDERED: GLIM2TAB PO (11:31)
== END 2020-12-31 16:34 | disposition home or self-care (01) | DRG 291 ==
LOC: ED 19:07 → EDIP 20:38 → 5SO 22:11 → DCLOUNGE 12-31 16:22
PROVIDERS: ADMIT Internal Medicine; ATTEND Internal Medicine
PROC: 0T9B70Z Drainage of Bladder with Drainage Device, Via Natural or Artificial Opening (ICD-10-PCS; principal; 2020-12-28)
DX: I13.0 Hypertensive heart and chronic kidney disease with heart failure and stage 1 through stage 4 chronic kidney disease, or unspecified chronic kidney disease (principal); I50.31 Acute diastolic (congestive) heart failure; J96.01 Acute respiratory failure with hypoxia; I48.20 Chronic atrial fibrillation, unspecified; E46 Unspecified protein-calorie malnutrition; J91.8 Pleural effusion in other conditions classified elsewhere; I48.92 Unspecified atrial flutter; I24.8 Other forms of acute ischemic heart disease; M19.90 Unspecified osteoarthritis, unspecified site; E11.22 Type 2 diabetes mellitus with diabetic chronic kidney disease; E78.5 Hyperlipidemia, unspecified; I25.10 Atherosclerotic heart disease of native coronary artery without angina pectoris; I25.2 Old myocardial infarction; I34.0 Nonrheumatic mitral (valve) insufficiency; N18.9 Chronic kidney disease, unspecified; N40.0 Benign prostatic hyperplasia without lower urinary tract symptoms; Z59.0 Homelessness; Z79.01 Long term (current) use of anticoagulants; Z79.899 Other long term (current) drug therapy; Z87.891 Personal history of nicotine dependence; Z79.84 Long term (current) use of oral hypoglycemic drugs; R74.01 Elevation of levels of liver transaminase levels
CPT/HCPCS: 36415; 71045; 71046; 78452; 80048; 80053; 80074; 81001; 82962; 83036; 83735; 83880; 84100; 84439; 84443; 84481; 84484; 85025; 93005; 93017; 99291; G0378; J1940; J2785; P9047; A9502; J1815